=== PATIENT | male | born 1960 | race African-American/Black ===

== ENCOUNTER 2017-03-14 11:02 | Emergency (ER) | payer MEDICAID, OTHER ==
[~2017-03-14] VITALS: Ht 180.3 cm; Wt 84.0 kg
[2017-03-14 11:16] VITALS: BP 118/71
[2017-03-14 11:47] LABS: BASOPHILS % 0.5 % (0.0-2.0); EOSINOPHILS % 1.3 % (0.0-5.0); HEMATOCRIT. 39.8 % (42.0-52.0); HEMOGLOBIN. 13.5 g/dL (14.0-18.0); LYMPHOCYTES % 16.6 % (20.0-50.0); MEAN CORPUSCULAR HEMOGLOBIN 31.5 pg (28.0-32.0); MEAN CORPUSCULAR VOLUME 92.7 fL (80.0-94.0); MEAN PLATELET VOLUME 10.5 fl (7.4-10.4); MONOCYTES % 7.6 % (2.0-8.0); PLATELET 148 x1000/uL (130-400); RED BLOOD CELL COUNT 4.29 mill/uL (4.7-6.1); RED CELL DISTRIBUTION WIDTH 13.9 % (11.6-14.6)
[2017-03-14 11:55] LABS: PROTHROMBIN TIME 10.7 sec (9.4-11.6)
[2017-03-14 12:04] LABS: CARBON DIOXIDE 30 mEq/L (21-32); CHLORIDE 105 mEq/L (98-107)
[2017-03-14 12:05] LABS: ETHANOL BLOOD < 10 mg/dL; TROPONIN I < 0.02 ng/mL (0.00-0.04)
[2017-03-14 13:26] LABS: *AMPHETAMINES SCREEN URINE NEGATIVE (NEGATIVE); *BARBITURATES SCREEN URINE NEGATIVE (NEGATIVE); *BENZODIAZEPINES SCREEN URINE NEGATIVE (NEGATIVE); *COCAINE SCREEN URINE NEGATIVE (NEGATIVE); CANNABINOID URINE SCREEN PRESUMTIVE POSITIVE (NEGATIVE); METHADONE URINE SCREEN NEGATIVE (NEGATIVE); OPIATES URINE SCREEN NEGATIVE (NEGATIVE); PHENCYCLIDINE URINE SCREEN NEGATIVE (NEGATIVE)
== END 2017-03-14 13:58 | disposition home or self-care (01) ==
LOC: ER 11:47
DX: R07.89 Other chest pain (principal)
CPT/HCPCS: 36415; 71010; 80053; 80305; 83880; 84484; 85025; 85610; 93005; 99285; G0482; Z7610

== ENCOUNTER 2019-03-14 20:58 | Inpatient (IN) | payer MEDICAID, OTHER ==
[~2019-03-14] VITALS: Ht 180.3 cm; Wt 83.0 kg
[2019-03-14] MEDS ORDERED: SODIUM CHLORIDE 0.9% 1,000 ML IV ONE (22:57)
[2019-03-14 23:10] LABS: CLARITY URINE CLEAR (CLEAR); COLOR URINE YELLOW (YELLOW); KETONES URINE NEGATIVE (NEGATIVE); LEUKOCYTE ESTERASE URINE NEGATIVE (NEGATIVE); NITRITE URINE NEGATIVE (NEGATIVE); OCCULT BLOOD URINE NEGATIVE (NEGATIVE); PH URINE 8.5 (4.5-8.0); PROTEIN URINE NEGATIVE (NEGATIVE); SPECIFIC GRAVITY URINE 1.013 (1.005-1.030)
[2019-03-14 23:22] LABS: *COCAINE SCREEN URINE NEGATIVE (NEGATIVE)
[2019-03-14 23:23] LABS: HEMATOCRIT. 30.7 % (42.0-52.0); HEMOGLOBIN. 10.3 g/dL (14.0-18.0); MEAN CORPUSCULAR HEMOGLOBIN 30.5 pg (28.0-32.0); MEAN CORPUSCULAR VOLUME 91.3 fL (80.0-94.0); MEAN PLATELET VOLUME 9.4 fl (7.4-10.4); PLATELET 145 x1000/uL (130-400); RED BLOOD CELL COUNT 3.36 mill/uL (4.7-6.1); RED CELL DISTRIBUTION WIDTH 21.2 % (11.6-14.6)
[2019-03-14 23:23] LABS: *BARBITURATES SCREEN URINE NEGATIVE (NEGATIVE); *BENZODIAZEPINES SCREEN URINE NEGATIVE (NEGATIVE); CANNABINOID URINE SCREEN NEGATIVE (NEGATIVE); METHADONE URINE SCREEN NEGATIVE (NEGATIVE); OPIATES URINE SCREEN NEGATIVE (NEGATIVE); PHENCYCLIDINE URINE SCREEN NEGATIVE (NEGATIVE)
[2019-03-14 23:24] LABS: *AMPHETAMINES SCREEN URINE NEGATIVE (NEGATIVE)
[2019-03-14 23:26] LABS: CHLORIDE 102 mEq/L (98-107)
[2019-03-14 23:30] LABS: ETHANOL BLOOD < 10 mg/dL
[2019-03-14 23:31] LABS: D-DIMER 1.68 mg/L FEU (<0.50); PARTIAL THROMBOPLASTIN TIME 25.2 sec (23.4-31.0); PROTHROMBIN TIME 10.1 sec (9.6-11.0)
[2019-03-15] MEDS ORDERED: IPRATROPIUM/ALBUTEROL 0.5-3(2.5)MG/3ML NEB HHN ONE
[2019-03-15] MEDS ORDERED: LEVOFLOXACIN 750MG PREMIX 150 ML IV ONE (00:30)
[2019-03-15] MEDS ORDERED: LORAZEPAM 2MG/ML CPJ IV ONE (00:45)
[2019-03-15] MEDS ORDERED: IOHEXOL-350 100 ML BOTTLE ONE (01:40)
[2019-03-15] MEDS ORDERED: ENOXAPARIN 80MG/0.8ML SYR SUBCUT ONE (02:00)
[2019-03-15 05:26] LABS: PLATELET ESTIMATE NORMAL
[2019-03-15] MEDS: SODIUM CHLORIDE 0.9% 1,000 ML IV SCH ×2 (15:24→23:13)
[2019-03-15] MEDS ORDERED: DOCUSATE SODIUM 100MG CAPSULE PO PRN (15:30)
[2019-03-15] MEDS ORDERED: IPRATROPIUM/ALBUTEROL 0.5-3(2.5)MG/3ML NEB HHN PRN (15:30)
[2019-03-15] MEDS ORDERED: CLONIDINE 0.1MG TABLET PO PRN (15:30)
[2019-03-15] MEDS ORDERED: ONDANSETRON HCL 4MG/2ML INJ IV PRN (15:30)
[2019-03-15] MEDS ORDERED: LORAZEPAM 2MG/ML CPJ IV PRN (15:30)
[2019-03-15] MEDS ORDERED: HYDROCODONE/APAP 7.5/325MG 1 TAB TABLET PO PRN (15:30)
[2019-03-15] MEDS ORDERED: ENOXAPARIN 80MG/0.8ML SYR SUBCUT SCH (16:30)
[2019-03-15 22:30] VITALS: BP 108/79
[2019-03-15] MEDS ORDERED: HYDROMORPHONE HCL/PF 2MG/ML CPJ IV PRN (22:30)
[2019-03-15] MEDS: ENOXAPARIN 80MG/0.8ML SYR SUBCUT SCH (23:12)
[2019-03-16] VITALS (7 sets, daily range): BP systolic 104–124; BP diastolic 49–79
[2019-03-16 07:29] LABS: TOTAL IRON BINDING CAPACITY 234 ug/dL (250-450)
[2019-03-16 07:32] LABS: HEMATOCRIT. 25.8 % (42.0-52.0); HEMOGLOBIN. 8.6 g/dL (14.0-18.0); MEAN CORPUSCULAR HEMOGLOBIN 30.3 pg (28.0-32.0); MEAN CORPUSCULAR VOLUME 90.3 fL (80.0-94.0); MEAN PLATELET VOLUME 10.3 fl (7.4-10.4); PLATELET 123 x1000/uL (130-400); RED BLOOD CELL COUNT 2.85 mill/uL (4.7-6.1); RED CELL DISTRIBUTION WIDTH 20.1 % (11.6-14.6)
[2019-03-16] MEDS: ENOXAPARIN 80MG/0.8ML SYR SUBCUT SCH (09:14)
[2019-03-16] MEDS: IPRATROPIUM/ALBUTEROL 0.5-3(2.5)MG/3ML NEB HHN SCH ×4 (09:23→20:00)
[2019-03-16] MEDS: ACETAMINOPHEN 325MG TABLET PO PRN ×2 (10:07→17:53)
[2019-03-16] MEDS: SODIUM CHLORIDE 0.9% 1,000 ML IV SCH (11:23)
[2019-03-16] MEDS ORDERED: BACLOFEN 10MG TABLET PO SCH (14:00)
[2019-03-16 15:41] LABS: PLATELET ESTIMATE NORMAL
[2019-03-16] MEDS ORDERED: FERROUS SULFATE 325MG TABLET PO SCH (17:50)
[2019-03-16] MEDS: APIXABAN 5 MG TABLET PO SCH (17:53)
[2019-03-16] MEDS: CHLORPROMAZINE HCL 25 MG TABLET PO SCH (23:34)
[2019-03-17] VITALS (9 sets, daily range): BP systolic 104–124; BP diastolic 62–81
[2019-03-17] MEDS: IPRATROPIUM/ALBUTEROL 0.5-3(2.5)MG/3ML NEB HHN SCH ×8 (04:21→23:56)
[2019-03-17] MEDS: ACETAMINOPHEN 325MG TABLET PO PRN ×2 (04:26→18:26)
[2019-03-17] MEDS: SODIUM CHLORIDE 0.9% 1,000 ML IV SCH ×2 (04:31→18:27)
[2019-03-17] MEDS: CHLORPROMAZINE HCL 25 MG TABLET PO SCH ×3 (06:52→22:23)
[2019-03-17] MEDS: FERROUS SULFATE 325MG TABLET PO SCH (09:03)
[2019-03-17] MEDS: APIXABAN 5 MG TABLET PO SCH ×2 (09:03→18:26)
[2019-03-18] VITALS: BP 105/66
[2019-03-18 04:00] VITALS: BP 106/72
[2019-03-18] MEDS: IPRATROPIUM/ALBUTEROL 0.5-3(2.5)MG/3ML NEB HHN SCH ×2 (05:19→09:01)
[2019-03-18] MEDS: CHLORPROMAZINE HCL 25 MG TABLET PO SCH (06:02)
[2019-03-18] MEDS: SODIUM CHLORIDE 0.9% 1,000 ML IV SCH (06:03)
[2019-03-18] MEDS: ACETAMINOPHEN 325MG TABLET PO PRN (06:03)
[2019-03-18 08:00] VITALS: BP 102/64
[2019-03-18] MEDS: APIXABAN 5 MG TABLET PO SCH (09:20)
[2019-03-18] MEDS: FERROUS SULFATE 325MG TABLET PO SCH (09:21)
[2019-03-18 11:32] VITALS: BP 112/55
[2019-03-22] MEDS ORDERED: APIXABAN 5 MG TABLET PO SCH (09:00)
== END 2019-03-18 12:30 | disposition hospice, home (50) | DRG 134 ==
LOC: ER 21:15 → EDBEDREQ 03-15 00:40 → 6WST 03-15 00:54 → EDBEDREQDT 03-15 01:08 → EDBEDREQ 03-15 01:08 → EDBEDREQTM 03-15 01:08 → MICUNO 03-15 07:36 → UNDOADMIN 03-15 07:36 → ENRESERV 03-15 21:37
PROVIDERS: ADMIT Internal Medicine; ATTEND Internal Medicine
DX: I26.99 Other pulmonary embolism without acute cor pulmonale (principal); J96.00 Acute respiratory failure, unspecified whether with hypoxia or hypercapnia; C78.01 Secondary malignant neoplasm of right lung; C78.7 Secondary malignant neoplasm of liver and intrahepatic bile duct; D68.69 Other thrombophilia; C25.9 Malignant neoplasm of pancreas, unspecified; C78.02 Secondary malignant neoplasm of left lung; E87.2 Acidosis; D68.9 Coagulation defect, unspecified; C79.51 Secondary malignant neoplasm of bone; D64.9 Anemia, unspecified; Z66 Do not resuscitate; R74.0 Nonspecific elevation of levels of transaminase and lactic acid dehydrogenase [LDH]; Z87.891 Personal history of nicotine dependence; Z51.5 Encounter for palliative care; Z79.01 Long term (current) use of anticoagulants; Z92.21 Personal history of antineoplastic chemotherapy
CPT/HCPCS: 36415; 71045; 71275; 80305; 80320; 81003; 82728; 83540; 83550; 83605; 83880; 84484; 85379; 93005; 93970; 94640; 99285; J1170; J1650; J1956; J2060; J7030; J7042; J7620; Q0161; Q9967; G0480

== ENCOUNTER 2019-04-17 21:56 | Emergency (ER) | payer OTHER ==
[~2019-04-17] VITALS: Ht 172.7 cm; Wt 79.0 kg
[2019-04-17] MEDS ORDERED: MORPHINE SULFATE 4 MG/ML CPJ (NOT FOR IM USE) IV STA (22:37)
[2019-04-17] MEDS ORDERED: SODIUM CHLORIDE 0.9% 1,000 ML IV ONE (22:37)
[2019-04-17] MEDS ORDERED: DOCUSATE SODIUM 100MG CAPSULE PO ONE (22:45)
[2019-04-17] MEDS ORDERED: MAGNESIUM HYDROXIDE 400MG/5ML 30ML UDC PO ONE (22:45)
[2019-04-18 00:12] LABS: MEAN CORPUSCULAR HEMOGLOBIN 27.2 pg (28.0-32.0); MEAN CORPUSCULAR VOLUME 85.8 fL (80.0-94.0); MEAN PLATELET VOLUME 8.6 fl (7.4-10.4); PLATELET 338 x1000/uL (130-400); RED BLOOD CELL COUNT 2.42 mill/uL (4.7-6.1); RED CELL DISTRIBUTION WIDTH 18.8 % (11.6-14.6)
[2019-04-18 00:16] LABS: CHLORIDE 98 mEq/L (98-107)
[2019-04-18 00:35] LABS: HEMATOCRIT. 20.8 % (42.0-52.0); HEMOGLOBIN. 6.6 g/dL (14.0-18.0)
[2019-04-18 01:48] LABS: PLATELET ESTIMATE NORMAL
[2019-04-18 07:25] VITALS: BP 116/81
== END 2019-04-18 07:28 | disposition short-term general hospital (02) ==
LOC: ER 21:56
DX: D64.9 Anemia, unspecified (principal); C25.9 Malignant neoplasm of pancreas, unspecified; G89.29 Other chronic pain; K59.00 Constipation, unspecified
CPT/HCPCS: 36415; 74176; 86850; 86900; 86901; 86920; 93005; 96374; 99291; J2270; J7030; J7040; Z7610; P9016; A4315